=== PATIENT | male | born 1995 | race Caucasian/White ===

== ENCOUNTER 2019-03-13 22:11 | Emergency (ER) | payer MEDICAID ==
[~2019-03-13] VITALS: Ht 170.2 cm; Wt 83.9 kg
[2019-03-13] MEDS ORDERED: PROZAC10 MG PO (22:19)
[2019-03-13] MEDS ORDERED: VISTARIL 25 MG25 M1 PO (22:19)
[2019-03-13] MEDS ORDERED: PEPCID20 MG PO (22:19)
[2019-03-13 23:31] VITALS: BP 146/82
--- NOTE | 2019-03-14 10:08 | EKG ---
[place] [address] ELECTROCARDIOGRAM REPORT Name: NARINDER VERA Room: [facility]#: [id number] Admission: 03/13/19 Attend Phys: Discharge: 03/13/19 Date of : [birth year] Report #: [id number] THIS REPORT FOR: //name// [facility] ED Test Date: 2019-03-13 Test Time: 22:17:02 Pat Name: NARINDER VERA Department: Room: Gender: M [employer]: TAVON : 1995 Requested By: Gina Yanez Order Number: [id number] Shayne MD: Jayden Taylor Measurements Intervals [place] Rate: 103 P: 68 ND: 164 QRS: 52 QRSD: 89 T: 23 QT: 318 QTc: 416 Interpretive Statements Sinus tachycardia Left atrial enlargement septal infarct, old Baseline wander in lead(s) I,II,aVR,aVF No previous ECG available for comparison Electronically Signed On 03-14-2019 10:08:17 CDT by Jayden Taylor [email or web address] <ELECTRONICALLY SIGNED> By: Jayden Taylor MD, [facility] 03/14/19 1008 16 16 Jayden Taylor MD, [facility] /EPI
== END 2019-03-13 23:30 | disposition home or self-care (01) ==
LOC: M.ERS 22:11
DX: R07.89 Other chest pain (principal); F31.9 Bipolar disorder, unspecified; F41.9 Anxiety disorder, unspecified; G10 Huntington's disease